=== PATIENT | female | born 1970 | race Caucasian/White ===

== ENCOUNTER 2019-01-17 09:08 | Inpatient (IN) | payer OTHER ==
[~2019-01-17] VITALS: Ht 149.9 cm; Wt 64.4 kg
[2019-02-08] MEDS ORDERED: OXYC1TAB9 PO (13:02)
[2019-02-08] MEDS ORDERED: INTESTINEX680 M1 PO (13:02)
[2019-02-08] MEDS ORDERED: LEVSIN/SL0.125 MG SL (13:03)
[2019-02-08] MEDS ORDERED: DICLOFENAC SODI75 MG PO (13:04)
[2019-02-08] MEDS ORDERED: IMODIUM A-D2 M2 PO (13:06)
== END 2019-02-08 13:56 | disposition home or self-care (01) | DRG 331 ==
LOC: O/R 02-05 05:45 → SURH 02-05 05:45 → O/R 02-05 07:00 → SURH 02-05 13:22
PROVIDERS: ADMIT Surgery
PROC: 0DTF4ZZ Resection of Right Large Intestine, Percutaneous Endoscopic Approach (ICD-10-PCS; 2019-02-05)
PROC: 0DJD8ZZ Inspection of Lower Intestinal Tract, Via Natural or Artificial Opening Endoscopic (ICD-10-PCS; 2019-02-05)
PROC: 0DTN4ZZ Resection of Sigmoid Colon, Percutaneous Endoscopic Approach (ICD-10-PCS; principal; 2019-02-05 07:00)
DX: K57.32 Diverticulitis of large intestine without perforation or abscess without bleeding (principal); K63.89 Other specified diseases of intestine

== ENCOUNTER 2019-02-10 21:49 | Emergency (ER) | payer OTHER ==
[~2019-02-10] VITALS: Ht 149.9 cm; Wt 63.5 kg
[~2019-02-10 21:49] MED LIST: DICLOFENAC SODI75 MG PO; IMODIUM A-D2 M2 PO; INTESTINEX680 M1 PO; LEVSIN/SL0.125 MG SL; OXYC1TAB9 PO
== END 2019-02-10 23:47 | disposition home or self-care (01) ==
LOC: ER 21:49
DX: K91.841 Postprocedural hemorrhage of a digestive system organ or structure following other procedure (principal)

== ENCOUNTER 2019-02-22 06:42 | Inpatient (IN) | payer OTHER ==
[~2019-02-22] VITALS: Ht 149.9 cm; Wt 63.5 kg
--- NOTE | 2019-02-22 07:08 | NUR ---
SE RECIBE PTE LA CUAL REFIERE PRESENTAR DOLOR ABDOMINAL INTERMITENTE, DESDE HACE UNOS LI LUEGO DE OPERACION REALIZADA POR DR. OSBORN. PTE REFIERE QUE LLEGA A ER POR INSTRUCIONES DEL Y QUE DOLOR ES INTERMITENTE.
--- NOTE | 2019-02-22 08:30 | NUR ---
PTE FEMENINA, ALERTA Y ORIENTADA EN [place] ESFERAS ES EVALUADA POR DR. ROSE EL CUAL ORDENA TRATAMIENTO. SE ORIENTA PTE SOBRE TRATAMIENTO, REFIERE ENTENDER. SE CANALIZA PTE EN ANTEBRAZO R+ CON ANGIO #[id number], BAJO MEDIDAS ASEPTICAS, AREA ANKUSH DE EDEMA Y ERITEMA. SE REALIZA MAGUI DE MUESTRAS DE ADRIANNE, BAJO MEDIDAS ASEPTICAS ANAY ORDENADAS. SE ROTULAN Y ENVIAN A LABORATORIO. SE ENTREGA Y ORIENTA SOBRE COLECCION DE MUESTRA U/A REFIERE COMPRENDER. SE ORIENTA PTE A NO CNSUMIR NADA POR BOCA ANAY ORDEN MEDICA, REFIERE ENTENDER. SE MANTIENE EN OBSERVACION POR CAMBIOS SIGNIFICATIVOS.
== END 2019-03-09 15:05 | disposition home or self-care (01) | DRG 392 ==
LOC: ER 06:42 → SURH 12:05 → SEC-K 12:05 → SURH 21:41
PROVIDERS: ADMIT Surgery
PROC: BW21Y0Z Computerized Tomography (CT Scan) of Abdomen and Pelvis using Other Contrast, Unenhanced and Enhanced (ICD-10-PCS; principal; 2019-02-22)
PROC: 02HV33Z Insertion of Infusion Device into Superior Vena Cava, Percutaneous Approach (ICD-10-PCS; 2019-02-23)
PROC: BW21Y0Z Computerized Tomography (CT Scan) of Abdomen and Pelvis using Other Contrast, Unenhanced and Enhanced (ICD-10-PCS; 2019-02-28)
PROC: 0F943ZX Drainage of Gallbladder, Percutaneous Approach, Diagnostic (ICD-10-PCS; 2019-03-02)
PROC: BW21Y0Z Computerized Tomography (CT Scan) of Abdomen and Pelvis using Other Contrast, Unenhanced and Enhanced (ICD-10-PCS; 2019-03-07)
DX: K57.50 Diverticulosis of both small and large intestine without perforation or abscess without bleeding (principal); K81.0 Acute cholecystitis

== ENCOUNTER 2019-05-04 22:25 | Emergency (ER) | payer OTHER ==
[~2019-05-04] VITALS: Ht 149.9 cm; Wt 61.2 kg
== END 2019-05-05 06:10 | disposition home or self-care (01) ==
LOC: ER 22:25
DX: K52.9 Noninfective gastroenteritis and colitis, unspecified (principal); R10.84 Generalized abdominal pain

== ENCOUNTER 2019-05-08 19:40 | Emergency (ER) | payer OTHER ==
[~2019-05-08] VITALS: Ht 149.9 cm; Wt 61.2 kg
== END 2019-05-09 00:13 | disposition home or self-care (01) ==
LOC: ER 19:40
DX: K59.09 Other constipation (principal); R10.32 Left lower quadrant pain

== ENCOUNTER 2019-08-24 10:25 | Emergency (ER) | payer OTHER ==
[~2019-08-24] VITALS: Ht 149.9 cm; Wt 63.5 kg
== END 2019-08-24 15:17 | disposition home or self-care (01) ==
LOC: ER 10:25
DX: K52.89 Other specified noninfective gastroenteritis and colitis (principal); R10.31 Right lower quadrant pain

== ENCOUNTER 2024-11-05 13:41 | Emergency (ER) | payer OTHER ==
[~2024-11-05] VITALS: Ht 149.9 cm; Wt 64.4 kg
[2024-11-05] MEDS ORDERED: SULFAMETHOXAZO1 EACH (14:27)
[2024-11-05] MEDS ORDERED: MINERAL OIL 30 ML BLIST.PACK ONE (15:37)
[2024-11-05] MEDS ORDERED: LACTULOSE 20 G/30 ML BLIST.PACK ONE (15:38)
[2024-11-05] MEDS ORDERED: MAGNESIUM HYDROXIDE 30 ML BLIST.PACK PO ONE (15:38)
[2024-11-05] MEDS ORDERED: MAGNESIUM HYDROXIDE 400 MG/5 ML ML PO ONE (15:45)
[2024-11-05] MEDS ORDERED: MINERAL OIL 30 ML BLIST.PACK PO ONE (15:45)
[2024-11-05] MEDS ORDERED: LACTULOSE 20 G/30 ML BLIST.PACK PO ONE (15:45)
== END 2024-11-05 16:04 | disposition home or self-care (01) ==
LOC: ER 13:41
DX: K59.00 Constipation, unspecified (principal)